=== PATIENT | female | born 1990 | race African-American/Black ===

== ENCOUNTER 2018-08-29 21:16 | Emergency (ER) | payer OTHER ==
[~2018-08-29] VITALS: Ht 160 cm; Wt 86.2 kg
--- OUTSIDE RECORDS SUMMARY | 2018-08-29 21:18 | XMS REPORT ---
[facility] Address Unknown Phone Unavailable Care Team Providers Care Pile Driving Setter Name Role Phone PROVIDER, TEMP ED Unavailable Unavailable Payers Payer Name Policy Type Policy Number Effective Date Expiration Date Problems This patient has no known problems. Allergies, Adverse Reactions, Alerts Allergy Name Allergy Type Status Severity Reaction(s) Onset Date Inactive Date Treating Clinician Comments azithromycin DA Active U 2018-08-19 00:00:00 Penicillins DA Active MO 2017-03-20 00:00:00 Medications This patient has no known medications. Results Test Description Test Time Test Comments Text Results Atomic Results Result Comments Chemistry - Specials 2017-05-26 20:30:00 Chemistry - Specials (test code=BHCGST) Negative NEGATIVE Method of sensitivity- Indeterminant: results should be repeated after 48-72 hrs Positive: results may be detected as early as 1 day after the first missed menses. [id number] 19:22:00* Test Item Value Reference Range Comments Chemistry (test code=CKMBM-T) 0.9 ng/mL 0-6.6 Chemistry (test code=TROPI-T) 0.012 ng/mL < 0.028 Reference Range 0.00 - 0.028 ng/mL Negative 0.029 - 0.29 ng/mL Indeterminate Greater or Equal to 0.3 ng/mL Strongly suggests [place] [id number] 19:19:00* Test Item Value Reference Range Comments Chemistry (test code=NA-T) 139 mmol/L 136-145 Chemistry (test code=K-T) 3.8 mmol/L 3.5-5.1 Chemistry (test code=CL) 107 mmol/L 98-107 Chemistry (test code=CO2) 19 mmol/L 22-29 Chemistry (test code=ANGP) 17 mmol/L 10-20 Chemistry (test code=BUN) 10 mg/dL 7.0-18.7 Chemistry (test code=CREATT) 0.77 mg/dL 0.6-1.1 Chemistry (test code=EGFRMDRD) 90 Reference Range for Estimated GFR: Greater than 90 mL/min/1.73 m2NOTE:The MDRD equation has not been validated for use with theelderly (over 70 years of age), women, patien tswith serious comorbid condition or persons with extremes ofbody size, muscle mass, or nutritional status. Chemistry (test code=GLU-T) 115 mg/dL 70-105 Chemistry (test code=CA) 9.9 mg/dL 7.8-10.44 Chemistry (test code=TBILI) 0.2 mg/dL 0.2-1.2 Chemistry (test code=TP) 7.7 g/dL 6.0-8.3 Chemistry (test code=ALB) 4.2 g/dL 3.5-5.0 Chemistry (test code=GLOB) 3.5 g/dL 2.4-3.5 Chemistry (test code=AG) 1.2 g/dL 1.2-2.2 Chemistry (test code=ALP) 131 U/L 40-150 Chemistry (test code=AST) 14 U/L 5-34 Chemistry (test code=ALT) Less than 7 U/L 8-55 [id number] 19:19:00* Test Item Value Reference Range Comments Chemistry (test code=CK) 251 U/L 29-168 [id number] 19:15:00* Test Item Value Reference Range Comments Hematology (test code=WBCT) 7.3 thou/uL 4.8-10.8 Hematology (test code=RBCT) 4.28 mill/uL 4.20-5.40 Hematology (test code=HGBT) 11.4 g/dL 12.0-16.0 Hematology (test code=HCTT) 34.3 % 36.0-47.0 Hematology (test code=MCV) 80.2 fl 81.0-99.0 Hematology (test code=MCH) 26.6 pg 27.0-31.0 Hematology (test code=MCHC) 33.1 g/dL 32.0-36.0 Hematology (test code=RDW) 15.8 % 11.5-14.5 Hematology (test code=PLTT) 300 thou/uL 130-400 Hematology (test code=MPV) 7.8 fL 7.4-10.4 Hematology (test code=NE) 49 % 42-75 Hematology (test code=LY) 46 % 21-51 Hematology (test code=MO) 5 % 0-10 Hematology (test code=AN) SLIGHT=6-15 cells (100X) 0-5/hpf Hematology (test code=PCOMMENT) Appears Adequate [id number] 19:02:00* Test Item Value Reference Range Comments Coagulation (test code=DDIMTT) 0.48 *mcg/mL 0.27-0.43 * Reference Range Units: mcg/mL of fibrinogen equivalent units(FEU)Based upon a retrospective study of [facility] patients in January 2006, a result of"Less than 0.44 mcg/mL FEU" is predictive of the absence ofa DVT or PE.
--- NOTE | 2018-08-30 | NUR ---
BILINGUAL INSIDE SALES REPRESENTATIVE HERE AT THIS TIME.
[2018-08-30 01:59] VITALS: BP 133/82
== END 2018-08-30 01:30 | disposition home or self-care (01) ==
LOC: ER 21:16
DX: M79.662 Pain in left lower leg (principal); M79.89 Other specified soft tissue disorders; Z88.1 Allergy status to other antibiotic agents; Z88.0 Allergy status to penicillin
CPT/HCPCS: 93971; 99282